=== PATIENT | male | born 2000 | race Caucasian/White ===

== ENCOUNTER → 2023-12-30 | Outpatient (CLI) | payer BC, OTHER ==
[2023-12-30 19:12] LABS: Bacteria Few /hpf; Red Blood Cells, Urine 0-2 /hpf (0-2); Squamous Epithelial Cells Not Seen /hpf (Few); White Blood Cells, Urine 0-2 /hpf (0-5)
== END ==
LOC: LAB 18:42 → LAB SHORT 18:42
PROVIDERS: Student in an Organized Health Care Education/Training Program
DX: R30.0 Dysuria (principal)
CPT/HCPCS: 81015; 87077; 87086; 87186

== ENCOUNTER → 2024-10-07 | Outpatient (CLI) | payer OTHER ==
[2024-10-11 14:51] LABS: B PERTUSSIS/PARAPERTUSS SOURCE Nasopharyngeal; BORD PARAPERTUSSIS BY PCR Not Detected; BORDETELLA PERTUSSIS BY PCR Detected
== END ==
LOC: LAB SHORT 16:57 → LAB 16:57
PROVIDERS: Student in an Organized Health Care Education/Training Program
DX: R05.3 Chronic cough (principal)
CPT/HCPCS: 87798